=== PATIENT | male | born 1945 | race Caucasian/White ===

== ENCOUNTER 2018-08-15 00:18 | Emergency (ER) | payer OTHER ==
[2018-08-15 01:31] VITALS: TEMP 98.1; BMI 28.8
--- NOTE | 2018-08-15 03:31 | PDOC ---
"History of Present Illness - General Chief Complaint: Blood Pressure Problem Stated Complaint: HIGH BP Time Seen by Provider: 08/15/18 03:31 History Source: Patient Exam Limitations: No Limitations - History of Present Illness Initial Comments: 08/15/18 03:56 72 year old male with PMH HTN, DM, peptic ulcer disease presented to ED for HTN after running out of medication x2 days ago. Pt is in the process of changing PCP, and was unable to get a refill of his prescription. Pt denied chest pain, shortness of breath, palpitations, abdominal pain, lower extremity swelling, hematuria. Pt stated he took his blood pressure only because he knew he was not taking his medicine. Past History - Past Medical History Allergies/Adverse Reactions: Allergies Allergy/AdvReac Type Severity Reaction Status Date / Time No Known Allergies Allergy Verified 08/15/18 01:23 Home Medications: Ambulatory Orders Amlodipine Besylate/Valsartan [Amlodipine-Valsartan 10-160 mg] 1 each PO DAILY # 10 tablet 08/15/18 - Suicide/Smoking/Psychosocial Hx Smoking History: Never smoked Have you smoked in the past 12 months: No Information on smoking cessation initiated: No Hx Alcohol Use: No Drug/Substance Use Hx: No Review of Systems - Review of Systems Able to Perform ROS?: Yes Comments:: 08/15/18 03:58 General: denied fever, chills, night sweats, generalized weakness. HEENT: denied sore throat, rhinorrhea, ear pain. Heart: denied chest pain, palpitations, syncope, lower extremity swelling, diaphoresis. Respiratory: denied shortness of breath, cough, sputum production, hemoptysis. Abdomen: denied abdominal pain, nausea, vomiting, diarrhea, constipation, blood in stool. : denied dysuria, increased urinary frequency, hematuria, urinary incontinence , flank pain. Back: denied back pain. Musculoskeletal: denied joint pain, muscle pain, joint swelling. Neurological: denied headache, dizziness, numbness, tingling, weakness. Skin: denied rash, laceration, abrasion. *Physical Exam - Vital Signs Last Vital Signs Temp Pulse Resp BP Pulse Ox 98.1 F 79 18 163/92 97 08/15/18 00:35 08/15/18 00:35 08/15/18 00:35 08/15/18 00:35 08/15/18 00:35 - Physical Exam Comments: 08/15/18 03:58 Constitutional: Well-nourished, Well-developed, appearing stated age. HEENT: head is normocephalic, atraumatic. EOMI. PERRLA. Neck: supple. Full ROM. Heart: regular rhythm. no murmurs, rubs or gallops. Lungs: clear to auscultation bilaterally. no crackles, rhonchi or wheezing. no stridor. Abdomen: soft, nontender. normal bowel sounds. no rebound, guarding, masses. Extremities: Peripheral pulses intact. No lower extremity edema. Neurological: CN 2-12 grossly intact. Moves all four extremities. Psych: awake, alert, oriented x3. Follows commands. Answers questions appropriately. Moderate Sedation - Procedure Monitoring Vital Signs: Procedure Monitoring Vital Signs Temperature 98.1 F 08/15/18 00:35 Pulse Rate 79 08/15/18 00:35 Respiratory Rate 18 08/15/18 00:35 Blood Pressure 163/92 08/15/18 00:35 O2 Sat by Pulse Oximetry (%) 97 08/15/18 00:35 ED Treatment Course - LABORATORY CBC & Chemistry Diagram: 08/15/18 03:45 08/15/18 03:45 Medical Decision Making - Medical Decision Making 08/15/18 03:59 72 year old male with above PMH presented to ED for HTN secondary to running out of BP medication. Pt is asymptomatic. Initial Vital Signs Temp Pulse Resp BP Pulse Ox 98.1 F 79 18 163/92 97 08/15/18 00:35 08/15/18 00:35 08/15/18 00:35 08/15/18 00:35 08/15/18 00:35 Afebrile. No tachycardia. No tachypnea. Mild hypertension. No hypoxia on room air. Labs ordered: CBC, CMP, cardiac enzymes, BNP Imaging ordered: CXR Medications ordered: home valsartan 160 mg, home amlodipine 10 mg EKG performed at 0351: rate 69, regular rhythm, right axis, flipped T in I and II, flat T in aVF. No prior to compare. CXR my read: sharp costophrenic angles. no cardiomegaly. no infiltrate. no congestive changes. no pneumothorax. - Pending official read 08/15/18 04:50 CMP Sodium 137 mmol/L (136-145) 08/15/18 03:45 Potassium 4.5 mmol/L (3.5-5.1) 08/15/18 03:45 Chloride 102 mmol/L (98-107) 08/15/18 03:45 Carbon Dioxide 31 mmol/L (21-32) 08/15/18 03:45 Anion Gap 5 MMOL/L (8-16) L 08/15/18 03:45 BUN 18 mg/dL (7-18) 08/15/18 03:45 Creatinine 1.0 mg/dL (0.55-1.3) 08/15/18 03:45 Creat Clearance w eGFR > 60 (>60) 08/15/18 03:45 Random Glucose 167 mg/dL (74-106) H 08/15/18 03:45 Calcium 8.7 mg/dL (8.5-10.1) 08/15/18 03:45 Total Bilirubin 0.3 mg/dL (0.2-1) 08/15/18 03:45 AST 17 U/L (15-37) 08/15/18 03:45 ALT 27 U/L (13-61) 08/15/18 03:45 Alkaline Phosphatase 81 U/L (45-117) 08/15/18 03:45 B-Natriuretic Peptide 40.8 pg/ml (5-125) 08/15/18 03:45 Total Protein 7.0 g/dl (6.4-8.2) 08/15/18 03:45 Albumin 3.6 g/dl (3.4-5.0) 08/15/18 03:45 TSH 2.76 uIU/ml (0.358-3.74) 08/15/18 03:45 No electrolyte abnormalities. No MEGAN. No transaminitis. Normal TSH. 08/15/18 05:18 CBC WBC 8.8 K/mm3 (4.0-10.0) 08/15/18 03:45 RBC 5.25 M/mm3 (4.00-5.60) 08/15/18 03:45 Hgb 15.3 GM/dL (11.7-16.9) 08/15/18 03:45 Hct 43.8 % (35.4-49) 08/15/18 03:45 MCV 83.5 fl (80-96) 08/15/18 03:45 MCH 29.1 pg (25.7-33.7) 08/15/18 03:45 MCHC 34.9 g/dl (32.0-35.9) 08/15/18 03:45 RDW 13.3 % (11.9-15.9) 08/15/18 03:45 Plt Count 185 K/MM3 (134-434) 08/15/18 03:45 MPV 9.8 fl (7.5-11.1) 08/15/18 03:45 Absolute Neuts (auto) 4.9 K/mm3 (1.5-8.0) 08/15/18 03:45 Neutrophils % 55.8 % (42.8-82.8) 08/15/18 03:45 Lymphocytes % 35.0 % (8-40) 08/15/18 03:45 Monocytes % 7.0 % (3.8-10.2) 08/15/18 03:45 Eosinophils % 1.6 % (0-4.5) 08/15/18 03:45 Basophils % 0.6 % (0-2.0) 08/15/18 03:45 Nucleated RBC % 0 % (0-0) 08/15/18 03:45 No leukocytosis. No anemia. Pt to be discharged with refill of his home BP medication. Pt has PCP appointment sunday. *DC/Admit/Observation/Transfer Diagnosis at time of Disposition: HTN (hypertension) - Discharge Dispostion Disposition: HOME Condition at time of disposition: Stable Decision to Admit order: No - Prescriptions Prescriptions: Amlodipine Besylate/Valsartan [Amlodipine-Valsartan 10-160 mg] 1 each PO DAILY # 10 tablet - Referrals Referrals: Mariah Nelson [Primary Care Provider] - - Patient Instructions Printed Discharge Instructions: DI for High Blood Pressure, How to Monitor Your Blood Pressure at Home Additional Instructions: You were seen today for high blood pressure. Your lab work was normal. Your EKG was normal. Your chest X-ray was normal. I have sent a prescription for your blood pressure medication to your pharmacy. Pick it up as soon as possible and take as advised on label. Attend your appointment with your primary care doctor on Sunday. Return to the Emergency Department for blood pressure >180/100, severe headache, chest pain, shortness of breath, swelling to your lower legs, blood in urine, weakness, numbness or any other new, worsening or concerning symptoms. | Hoy te vieron por presin arterial tatum. Tu trabajo de laboratorio fue normal. Tu EKG era normal. Stauffer radiografa de trax era normal. He enviado joleen receta para stauffer medicamento para la presin arterial a stauffer farmacia. Recjalo lo antes posible y tmelo belem se indica en la etiqueta. Asista a stauffer zohra con stauffer mdico de atencin primaria el osiris. Regrese al Departamento de Emergencias para la presin arterial> 180/100, dolor de yousif kaveh, dolor en el pecho, falta de aliento, hinchazn en la parte inferior de las piernas, bri en la orina, debilidad, entumecimiento o cualquier otro sntoma nuevo, que empeore o relacionado. Print Language: KHMER - Post Discharge Activity Forms/Work/School Notes: Back to Work"
[2018-08-15] MEDS ORDERED: VALSARTAN 160 MG TABLET (UD) PO ONE (03:58)
[2018-08-15] MEDS ORDERED: amLODIPine BESYLATE 10 MG TABLET (FP) PO ONE (03:58)
[2018-08-15 03:59] LABS: BASO % 0.6 % (0-2.0); EOS % 1.6 % (0-4.5); HEMATOCRIT 43.8 % (35.4-49); HEMOGLOBIN 15.3 GM/dL (11.7-16.9); MCH 29.1 pg (25.7-33.7); MCHC 34.9 g/dl (32.0-35.9); MEAN CELL VOLUME 83.5 fl (80-96); MEAN PLT VOLUME 9.8 fl (7.5-11.1); NEUT % 55.8 % (42.8-82.8); PLATELET COUNT 185 K/MM3 (134-434); RBC 5.25 M/mm3 (4.00-5.60); RDW 13.3 % (11.9-15.9); WHITE BLOOD COUNT 8.8 K/mm3 (4.0-10.0)
[2018-08-15] MEDS ORDERED: VALSARTAN 80 MG TABLET (UD) ONE (04:00)
[2018-08-15] MEDS ORDERED: amLODIPine BESYLATE 5 MG TABLET (FP) ONE (04:00)
[2018-08-15 04:11] LABS: INR 0.99 (0.83-1.09); PROTHROMBIN TIME (PATIENT) 11.7 SEC (9.7-13.0)
[2018-08-15 04:13] LABS: ACTIVATED PTT 33.8 SECONDS (25.2-36.5)
[2018-08-15 04:27] LABS: ALBUMIN 3.6 g/dl (3.4-5.0); ALK PHOS 81 U/L (45-117); ANION GAP 5 MMOL/L (8-16); BILIRUBIN,TOTAL 0.3 mg/dL (0.2-1); BLOOD UREA NITROGEN 18 mg/dL (7-18); CALCIUM 8.7 mg/dL (8.5-10.1); CHLORIDE 102 mmol/L (98-107); CO2 31 mmol/L (21-32); GLUCOSE,RANDOM 167 mg/dL (74-106); N-TERMINAL BNP 40.8 pg/ml (5-125); POTASSIUM 4.5 mmol/L (3.5-5.1); SGOT/AST 17 U/L (15-37); SGPT/ALT 27 U/L (13-61); SODIUM 137 mmol/L (136-145)
--- NOTE | 2018-08-15 05:00 | PDOC ---
Attending Attestation - Resident Resident Name: Anel Roth - ED Attending Attestation I have performed the following: I have examined & evaluated the patient, The case was reviewed & discussed with the resident, I agree w/resident's findings & plan, Exceptions are as noted - HPI HPI: 08/15/18 05:00 [id number] w/ asyptommatic HTN in setting of medication noncompliance. - Physicial Exam PE: 08/15/18 05:00 nonfocal - Medical Decision Making 08/15/18 05:00 re-start BP meds DC.
[2018-08-15 05:04] VITALS: BP 148/85; PULSE 71
--- NOTE | 2018-08-15 16:17 | EKG ---
Test Reason : Blood Pressure : / mmHG Vent. Rate : 069 BPM Atrial Rate : 069 BPM P-R Int : 176 ms QRS Dur : 090 ms QT Int : 390 ms P-R-T Axes : 000 207 171 degrees QTc Int : 417 ms NORMAL SINUS RHYTHM RIGHT SUPERIOR AXIS DEVIATION ABNORMAL ECG NO PREVIOUS ECGS AVAILABLE Confirmed by MARTELL JEAN, JOSE ([id number]) on 08/15/2018 4:17:20 PM Referred By: Confirmed By:JOSE MOURA MD
== END 2018-08-15 05:24 | disposition home or self-care (01) ==
LOC: JER 00:18
DX: I10 Essential (primary) hypertension (principal)
CPT/HCPCS: 36415; 71046-TC-FY; 80053; 83880; 84443; 85025; 85610; 85730; 93005; 93010; 99283-25